=== PATIENT | female | born 1970 | race African-American/Black ===

== ENCOUNTER 2016-09-28 21:39 | Observation (INO) | payer OTHER ==
[~2016-09-28] VITALS: Ht 167.6 cm; Wt 97.5 kg
[~2016-09-28 21:39] MED LIST: AMLODIPINE10 MG PO; HYDRODIURIL 112.5 M1 PO; METOPROLOL TART25 M1 PO; PROTONIX40 M3 PO
--- NOTE | 2016-09-28 21:39 | NUR ---
EMS PATCH CLARIFIED NO NEURO DEFICITS ON THEIR ASSESSMENT, ONLY C/O IS ARM PAIN AND NUMBNESS
--- NOTE | 2016-09-28 21:45 | NUR ---
PT TO TRIAGE WITH C/O DRY COUGH, NAUSEA SINCE THIS MORNING AND RUE NUMBNESS AND WEAKNESS SINCE 9PM. SLIGHT WEAKNESS TO R HAND GRASP NOTED, NO ARM DRIFT, NO FACIAL DROOP, SPEACH WNL. PT DENIES CHEST PAIN. HYPERTENSIVE IN TRIAGE. HX OF HTN.
--- NOTE | 2016-09-28 22:01 | NUR ---
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
--- NOTE | 2016-09-28 22:10 | ED UPPER/LOWER EXTREMITY COMPL ---
History of Present Illness General Chief Complaint: Upper Extremity Problem Stated Complaint: BIBA FOR R ARM PAIN Source: patient Exam Limitations: no limitations Vital Signs & Intake/Output Vital Signs & Intake/Output Vital Signs Date Time Temp Pulse Resp B/P B/P Pulse O2 O2 Flow FiO2 Mean Ox Delivery Rate 09/28 2143 98.0 100 18 188/130 97 Room Air Allergies Coded Allergies: MDX - Diphenhydramine (From BENADRYL) (Intermediate, TACHYCARDIA/RESTLESS ) MDX - Lisinopril (LISINOPRIL) (Mild, COUGHING 11/15/12) Reconcile Medications Amlodipine Besylate (Amlodipine) 10 MG TAB 1 TAB PO DAILY HEART (Reported) Hydrochlorothiazide (Hydrodiuril 12.5 MG Tab) 12.5 MG HTAB 1 CAP PO DAILY WATER PILL (Reported) Metoprolol Tartrate (Lopressor) 25 MG TAB 1 TAB PO BID HEART (Reported) Pantoprazole Sodium (Protonix) 40 MG TAB 40 MG PO DAILY ACID REFLUX (Reported ) Triage Note: PT TO TRIAGE WITH C/O DRY COUGH, NAUSEA SINCE THIS MORNING AND RUE NUMBNESS AND WEAKNESS SINCE 9PM. SLIGHT WEAKNESS TO R HAND GRASP NOTED, NO ARM DRIFT, NO FACIAL DROOP, SPEACH WNL. PT DENIES CHEST PAIN. HYPERTENSIVE IN TRIAGE. HX OF HTN. Triage Nurses Notes Reviewed? yes Past History Travel History Traveled to [place] past 21 day No Medical History Cardiovascular: hypertension Surgical History Surgical History: non-contributory Psychosocial History What is your primary language Finnish Tobacco Use: Never used Departure Departure Condition: Stable Referrals: UNKNOWN (PCP/Family) Departure Forms: Customer Survey General Discharge Information
--- NOTE | 2016-09-28 22:32 | NUR ---
PT TO ER ROOM 2. EVALUATED BY DR CASTRO. STATES SYMPTOMS HAVE NOT CHANGED SINCE ARRIVAL TO ED. NO FACIAL DROOP. NO ARM DRIFT. C/O RT HAND WEAKNESS. STROKE ALERT CALLED BY DR CASTRO. PT TO CT WHILE ON CM WITH THIS RN
--- NOTE | 2016-09-28 22:38 | ED NEURO DEFICIT/STROKE ---
History of Present Illness General Chief Complaint: Upper Extremity Problem Stated Complaint: BIBA FOR R ARM PAIN Source: patient Exam Limitations: no limitations Vital Signs & Intake/Output Vital Signs & Intake/Output Vital Signs Date Time Temp Pulse Resp B/P B/P Pulse O2 O2 Flow FiO2 Mean Ox Delivery Rate 09/29 0200 96.8 81 18 178/94 987 Room Air 09/28 2356 96.8 79 18 156/96 100 Room Air 09/28 2340 100 Room Air 09/28 2143 98.0 100 18 188/130 97 Room Air ED Intake and Output 09/29 0000 09/28 1200 Intake Total Output Total 250 Balance -250 Output, Urine 250 Patient 215 lb Weight Weight Reported by Patient Measurement Method Allergies Coded Allergies: diphenhydramine (Intermediate, TACHYCARDIA/RESTLESSNESS 09/28/16) lisinopril (Mild, COUGHING 09/28/16) Reconcile Medications Hydralazine HCl 25 MG TABLET 1 TAB PO TID BLOOD PRESSURE (Reported) Metoprolol Tartrate (Lopressor) 25 MG TAB 1 TAB PO BID HEART (Reported) Nifedipine (Nifedipine ER) 60 MG TABLET.ER 1 TAB PO DAILY HEART HEALTH ( Reported) Pantoprazole Sodium (Protonix) 40 MG TAB 40 MG PO DAILY ACID REFLUX (Reported ) Triage Note: PT TO TRIAGE WITH C/O DRY COUGH, NAUSEA SINCE THIS MORNING AND RUE NUMBNESS AND WEAKNESS SINCE 9PM. SLIGHT WEAKNESS TO R HAND GRASP NOTED, NO ARM DRIFT, NO FACIAL DROOP, SPEACH WNL. PT DENIES CHEST PAIN. HYPERTENSIVE IN TRIAGE. HX OF HTN. Triage Nurses Notes Reviewed? yes Onset: Abrupt Duration: hour(s): Timing: single episode today Severity: mild New Weakness: RUE Altered Sensations: RUE Vision Problem? No Glaucoma? No Baseline: alert, oriented x 3 Associated Symptoms: right arm weakness and numbness HPI: 46 yo woman, history of hypertension, presents with right arm weakness for the past 1.5 hours. She states that she had a sudden onset of nausea and felt pain in her right shoulder and right upper arm. She then felt some numbness and tingling. She also felt weakness of her right wrist. She states, "I looked at my arm ended didn't feel natural." She notes no chest pain shortness of breath. She does confer mild diaphoresis and nausea which has since resolved. Past History Travel History Traveled to [place] past 21 day No Medical History Any Pertinent Medical History? see below for history Cardiovascular: hypertension Surgical History Surgical History: non-contributory Psychosocial History What is your primary language Bermudian Tobacco Use: Never used Family History Hx Contributory? No Review of Systems Review of Systems Constitutional: Reports: no symptoms. EENTM: Reports: no symptoms. Respiratory: Reports: no symptoms. Cardiovascular: Reports: no symptoms. GI: Reports: no symptoms. Genitourinary: Reports: no symptoms. Musculoskeletal: Reports: no symptoms. Skin: Reports: no symptoms. Neurological/Psychological: Reports: no symptoms. Hematologic/Endocrine: Reports: no symptoms. Immunologic/Allergic: Reports: no symptoms. All Other Systems: Reviewed and Negative Physical Exam Physical Exam General Appearance: well developed/nourished, mild distress Head: atraumatic, normal appearance Eyes: Bilateral: normal appearance, PERRL, EOMI. Ears, Nose, Throat: normal ENT inspection, moist mucous membrane Neck: normal inspection, supple, full range of motion Respiratory: normal breath sounds, chest non-tender, no respiratory distress, quiet respiration, lungs clear Cardiovascular: regular rate/rhythm Gastrointestinal: normal bowel sounds, soft, non-tender, no organomegaly Back: normal inspection, normal range of motion, muscle spasm, muscle spasm and tenderness in the right trapezius region. Range of motion of all extremities is normal. Extremities: normal range of motion Psychiatric: awake, alert, oriented x 3 Cranial Nerves: normal hearing, normal speech, PERRL Coordination/Gait: there is delayed finger to nose with the right hand, without tremor. Motor/Sensory: right fingers and right wrist 4+ out of 5 strength. Right elbow appears normal strength. Right shoulder with 4+ out of 5 strength with abduction Reflexes: 1+: bicep (R), bicep (L), knee (R), knee (L). Skin: intact, normal color, warm/dry Core Measures CVA/TIA Diagnosis: Yes NIH Stroke Scale: Total 0 Comment: Patient was normal 1.5 hours prior to presentation. However no need for TPA due to low stroke score and consultation with neurologist Severe Sepsis Present: No Septic Shock Present: No Bedside Dysphagia Screen Bedside Swallow Eval Done: Yes Result of Evaluation: Pass Progress Differential Diagnosis: tia vs cva vs radiculopathy vs muscle spasm vs other. 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 09/29 UNK Active Precautions 09/29 UNK Active NIH Stroke Scale 09/29 UNK Active Intake & Output 09/29 UNK Active TROPONIN LEVEL 09/28 2228 Complete PARTIAL THROMBOPLASTIN TIME 09/28 2228 Complete PROTHROMBIN TIME 09/28 2228 Complete COMPREHENSIVE METABOLIC PANEL 09/28 2228 Complete CBC WITHOUT DIFFERENTIAL 09/28 2228 Complete Current Medications Sig/Bharath Start time Last Medication Dose Stop Time Status Admin Enoxaparin Sodium 40 MG DAILY 09/29 1000 AC (Lovenox) Acetaminophen 650 MG Q6P PRN 09/29 114 AC (Tylenol) Acetaminophen 1,000 MG Q6P PRN 09/29 114 AC (Ofirmev) Laboratory Tests 09/28/16 2312: Anion Gap 9, Estimated GFR > 60, BUN/Creatinine Ratio 15.6, Glucose 179 H, Calcium 9.4, Total Bilirubin 0.3, AST 19, ALT 40, Alkaline Phosphatase 59, Troponin I < 0.01, Total Protein 6.8, Albumin 4.0, Globulin 2.8, Albumin/ Globulin Ratio 1.4, PT 10.1, INR 0.96, APTT 29, CBC w Diff NO MAN DIFF REQ, RBC 4.24, MCV 88.4, MCH 28.8, RDW 14.0, MPV 8.4, Gran % 68.2, Lymphocytes % 20.3 L, Monocytes % 8.0, Eosinophils % 3.2, Basophils % 0.3, Absolute Granulocytes 5.7, Absolute Lymphocytes 1.7, Absolute Monocytes 0.7 H, Absolute Eosinophils 0.3, Absolute Basophils 0, PUBS MCHC 32.6 L Diagnostic Imaging: Viewed by Me: Radiology Read, CT Scan. Discussed w/RAD: Radiology Read, CT Scan. CXR Impression: no acute abnormality, no infiltrates, normal size heart, normal mediastinum Initial ED EKG: normal axis, normal intervals, normal p-waves, normal QRS complex, normal sinus rhythm Comments: PATIENT: SELVIN PRATT PRESENT AGE: 46 PATIENT ACCOUNT NO: [id number] : 68 LOCATION: [facility] ORDERING PHYSICIAN: AMADOR CASTRO MD SERVICE DATE: 09/28/16 EXAM TYPE: RAD - XRY-PORTABLE CHEST XRAY EXAMINATION: XR PORTABLE CHEST CLINICAL INFORMATION: TIA. COMPARISON: Chest radiography 12/16/2009. TECHNIQUE: Portable frontal view of the chest was obtained. FINDINGS: No significant abnormality is noted involving the heart, lungs, mediastinum, bony thorax or soft tissues. IMPRESSION: Unremarkable examination. 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 <Electronically signed in Other Vendor System> SIGNED BY: JILL MAX MD 09/28/16 [id number] Departure Departure Disposition: STILL A PATIENT Condition: Stable Clinical Impression Primary Impression: Weakness of upper extremity Referrals: UNKNOWN (PCP/Family) Departure Forms: Customer Survey General Discharge Information Comments 09/28/16, :37.... discussed with neuro.... no need for tpa due to low neuro score, but pt merits obs for further evaluation. 09/28/16, 22:48... negative head ct. Observation Note Spoke With: TOMAS YEE MD Physician Advisor Notified: JENNIFER PATHAK,MURPHY [address] Patient In: Non-ED OBS Care Area Rationale for Observation: My rational for observation is as follows . Pt with right arm weakness, consistent with tia vs possible radiculopathy... discussed with neuro... pt merits observation for neuro exam and neuro consult in AM.
--- NOTE | 2016-09-28 22:51 | CT SCAN REPORT ---
EXAMINATION: CT HEAD WITHOUT CONTRAST CLINICAL INFORMATION: TIA. COMPARISON: Head CT 11/20/2012. TECHNIQUE: Contiguous axial imaging was performed from the skull base to vertex without intravenous administration of contrast. DLP: 600 mGy-cm FINDINGS: There is no evidence of acute intracranial hemorrhage or territorial infarction. No abnormal mass effect or midline shift is seen. Fiore to white matter differentiation is well preserved. No extra-axial fluid collections are identified. The ventricles are normal in size. There is no new abnormal attenuation within the brain parenchyma. The osseous structures and soft tissues are normal. The mastoid air cells are well aerated. Small chronic mucous retention cyst in the sphenoid sinus. IMPRESSION: No acute intracranial pathology. This critical result was discussed with Magda Zendejas at 10:48 PM on 09/28/2016 and it was ascertained that the content and urgency of the report was understood at the time of direct communication.
--- NOTE | 2016-09-28 23:02 | RADIOLOGY REPORT ---
EXAMINATION: XR PORTABLE CHEST CLINICAL INFORMATION: TIA. COMPARISON: Chest radiography 12/16/2009. TECHNIQUE: Portable frontal view of the chest was obtained. FINDINGS: No significant abnormality is noted involving the heart, lungs, mediastinum, bony thorax or soft tissues. IMPRESSION: Unremarkable examination.
--- NOTE | 2016-09-28 23:14 | NUR ---
BLOOD DRAWN AND SENT TO LAB [facility] [place] [facility]
[2016-09-28 23:19] LABS: ABSOLUTE BASOPHIL COUNT 0 /CUMM (0.0-0.2); ABSOLUTE EOSINOPHIL COUNT 0.3 /CUMM (0.0-0.7); ABSOLUTE GRANULOCYTE CT 5.7 /CUMM (1.4-6.5); ABSOLUTE LYMPH COUNT 1.7 /CUMM (1.2-3.4); ABSOLUTE MONOCYTE COUNT 0.7 /CUMM (0.10-0.60); BASOPHIL % 0.3 % (0.0-2.0); EOSINOPHIL % 3.2 % (0-5); GRANULOCYTE % 68.2 % (42.2-75.2); HEMATOCRIT 37.5 % (37-47); MEAN CORPUSCULAR HGB 28.8 PG (27.0-31.0); MEAN CORPUSCULAR HGB CONC 32.6 G/DL (33.0-37.0); MEAN CORPUSCULAR VOLUME 88.4 FL (81.0-99.0); MEAN PLATELET VOLUME 8.4 FL (7.4-10.4); PLATELET COUNT 283 /CUMM (130-400); RED BLOOD CELL CT 4.24 /CUMM (4.20-5.40); WHITE BLOOD CELL COUNT 8.4 /CUMM (4.8-10.8)
[2016-09-28 23:27] LABS: PT 10.1 SEC (9.4-12.5); PTT 29 SEC (25-37)
--- NOTE | 2016-09-29 00:02 | NUR ---
PT DENIES ABD PAIN. NAUSEA HAS RESOLVED. BP 156/96 MANUALLY. PT STATES ARM WEAKNESS AND PAIN HAS IMPROVED TO 5/10 FROM 710. PT REMAINS ALERT AND ORIENTED, CLEAR SPEACH, NO FACIAL DROOP. MOVING ALL EXTREMETIES
[2016-09-29] MEDS ORDERED: HYDRALAZINE HCL25 M1 PO (00:15)
[2016-09-29] MEDS ORDERED: NIFEDIPINE ER60 M1 PO (00:16)
--- NOTE | 2016-09-29 00:17 | NUR ---
PT STATE SHE HAS RX FOR 60 MG NIFEDIPINE ER, BUT USES OLD 30 MG TABLETS "WHEN MY BP ISN'T TOO HIGH" TOOK ONLY 30 MG ON 09/28/16
--- NOTE | 2016-09-29 01:21 | History & Physical ---
RENATO PATHAK,[facility] 09/29/16 0120: General Information and HPI MD Statement: I have seen and personally examined SELVIN PRATT and documented this H&P. The patient is a 46 year old F who presented with a patient stated chief complaint of [arm arm weakness and numbness]. Source of Information: patient Exam Limitations: poor historian History of Present Illness: Patient is a 46 year old lady with PMH of HTN, DM, HLD, GERD, who was BIBA after she felt right side arm weakness, numbness and swelling at 9 pm last night. Patient reported that at around 9 pm she started to feel a crampy pain on the right side of the neck radiating to the right arm and right side of the chest, she also felt weakness, swelling and numbness on the right arm; she got scared and immediately called 911 and was brought in the [facility] ED. When we saw the patient she reported that her symptoms were improved but still felt slight weakness and numbness on the right arm. She denied any tingling or burning sensation, did not notice any weakness or numbness in other limbs, denied slurred speech or facial droop. Denied headache, dizziness, LOC, visual changes. Patient also denied any similar episode in the past. Also denied recent lifting heavy items with right arm or lying on one side for long hours. 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 Patient denies chest pain, palpitation, SOB. Reports coughing and sneezing and sore throat but no fever, chills and sputum production. Denies any cardiac history, does not follow up with any hand cloth cutter. she has HTN and takes her BP medications regularly, however she has been having episodes of dizziness and hypotension lately (last time 7 days ago) and modifies BP medication herself based on her BP checks. Denies any lower extremity swelling. Allergies/Medications Allergies: Coded Allergies: diphenhydramine (Intermediate, TACHYCARDIA/RESTLESSNESS 09/28/16) lisinopril (Mild, COUGHING 09/28/16) Past History Travel History Traveled to [place] past 21 day No Medical History Cardiovascular: angina, hypertension Respiratory: NONE Gastrointestinal: NONE Musculoskeletal: NONE Psychiatric: NONE Endocrine: diabetes Blood Disorders: anemia Cancer(s): NONE Surgical History Surgical History: non-contributory Past Family/Social History Family History Relations & Conditions if any MOTHER FH: diabetes mellitus FH: heart disease FHx: hyperlipidemia Psychosocial History Where do you live? Home Who Do You Live With? child Services at Home: None Primary Language: Welsh Smoking Status: Never Smoked ETOH Use: denies use Illicit Drug Use: denies illicit drug use Functional Ability ADLs Independent: dressing, eating, toileting, bathing. 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 EENTM: Denies: blurred vision. Cardiovascular: Denies: chest pain, palpitations, peripheral edema, syncope. Respiratory: Denies: cough, short of breath, sputum production, stridor, wheezing. GI: Denies: abdominal pain, changes in stool. Genitourinary: Reports: no symptoms. Musculoskeletal: Reports: neck pain (right sided). Denies: back pain, joint pain. Skin: Reports: no symptoms. Neurological/Psychological: Reports: numbness (right arm, improved.), weakness (right arm. improved.). Denies: headache. Hematologic/Endocrine: Reports: no symptoms. Immunologic/Allergic: Reports: no symptoms. Exam & Diagnostic Data Last 24 Hrs of Vital Signs/I&O Vital Signs Date Time Temp Pulse Resp B/P B/P Pulse O2 O2 Flow FiO2 Mean Ox Delivery Rate 09/29 0318 79 168/102 09/29 0318 79 168/102 09/29 0230 98.5 75 18 168/108 98 Room Air 09/29 0200 96.8 81 18 178/94 987 Room Air 09/28 2356 96.8 79 18 156/96 100 Room Air 09/28 2340 100 Room Air 09/28 2143 98.0 100 18 188/130 97 Room Air Intake & Output 09/29 0800 09/29 0000 09/28 1600 Intake Total Output Total 250 Balance -250 Output, Urine 250 Patient 97.522 kg 97.522 kg Weight Weight Reported by Patient Measurement Method Physical Exam General Appearance Alert, Oriented X3, Cooperative, No Acute Distress Skin No Significant Lesion Skin Temp/Moisture Exam: Warm/Dry Sepsis Skin Exam (color): Normal for Ethnicity HEENT Atraumatic, EOMI, Mucous Membr. moist/pink, pupils round and reactive to light Neck Supple Cardiovascular Regular Rate, Normal S1, Normal S2, 3/6 systolic murmur in aortic area and LSB Lungs Clear to Auscultation, Normal Air Movement Abdomen Normal Bowel Sounds, Soft, No Tenderness Neurological Normal Gait, Normal Speech, Strength at 5/5 X4 Ext, Normal Tone, Sensation Intact, Cranial Nerves 3-12 NL, Reflexes 2+, tinel and phalen signs negative Extremities No Edema, Normal Pulses Vascular Normal Pulses, Pulses Symmetrical Last 24 Hrs of Labs/Addi: Laboratory Tests 09/28/16 2312: Anion Gap 9, Estimated GFR > 60, BUN/Creatinine Ratio 15.6, Glucose 179 H, Hemoglobin A1c Pending, Calcium 9.4, Total Bilirubin 0.3, AST 19, ALT 40, Alkaline Phosphatase 59, Troponin I < 0.01, Total Protein 6.8, Albumin 4.0, Globulin 2.8, Albumin/Globulin Ratio 1.4, TSH Pending, Free T4 1.25, PT 10.1, INR 0.96, APTT 29, CBC w Diff NO MAN DIFF REQ, RBC 4.24, MCV 88.4, MCH 28.8, RDW 14.0, MPV 8.4, Gran % 68.2, Lymphocytes % 20.3 L, Monocytes % 8.0, Eosinophils % 3.2, Basophils % 0.3, Absolute Granulocytes 5.7, Absolute Lymphocytes 1.7, Absolute Monocytes 0.7 H, Absolute Eosinophils 0.3, Absolute Basophils 0, PUBS MCHC 32.6 L Diagnostic Data EKG Results sinus rhythm, rate 92, LVH, OH interval 156, QTc 461, no acute ST-T changes CXR Results SERVICE DATE: 09/28/16 EXAM TYPE: RAD - XRY-PORTABLE CHEST XRAY EXAMINATION: XR PORTABLE CHEST CLINICAL INFORMATION: TIA. COMPARISON: Chest radiography 12/16/2009. TECHNIQUE: Portable frontal view of the chest was obtained. FINDINGS: No significant abnormality is noted involving the heart, lungs, mediastinum, bony thorax or soft tissues. IMPRESSION: Unremarkable examination. Other Results SERVICE DATE: 09/28/16 EXAM TYPE: CAT - CT HEAD WO IV CONTRAST EXAMINATION: CT HEAD WITHOUT CONTRAST CLINICAL INFORMATION: TIA. COMPARISON: Head CT 11/20/2012. TECHNIQUE: Contiguous axial imaging was performed from the skull base to vertex without intravenous administration of contrast. DLP: 600 mGy-cm FINDINGS: There is no evidence of acute intracranial hemorrhage or territorial infarction. No abnormal mass effect or midline shift is seen. Fiore to white matter differentiation is well preserved. No extra-axial fluid collections are identified. The ventricles are normal in size. There is no new abnormal attenuation within the brain parenchyma. The osseous structures and soft tissues are normal. The mastoid air cells are well aerated. Small chronic mucous retention cyst in the sphenoid sinus. IMPRESSION: No acute intracranial pathology. This critical result was discussed with Magda Zendejas at 10:48 PM on 09/28/2016 and it was ascertained that the content and urgency of the report was understood at the time of direct communication. Assessment/Plan Assessment: Patient is a 46 year old lady with PMH of HTN, DM (not taking medication), HLD ( not taking medication), GERD, recent admission in February 2016 at [facility] for chest pain and palpitation (rules out ACS)who was BIBA after she experienced right sided UE weakness and numbness. In the ED she was found to have slight RUE weakness; during our examination however, patient had full forces in all extremities with no sensory loss, rest of the neurology exam was also normal as mentioned above. Of note, patient's BP is found to be elevated. Head CT scan is negative for any intracranial pathology. She is moved from ED to telemetry for 24-hour observation. Problem list and plan: Possible TIA -BIBA after an episode of right sided arm weakness, pain and numbness, currently resolved. -Etiologies: TIA, radicular pain from possible neck osteoarthritis, carpal tunnel syndrome (less likely as tinel and phalen signs are negative and the patient denies paresthesia or tingling). -maximum 4 points in ABCD2 stroke risk assessment: Moderate Risk (based on HTN, DM, unilateral weakness, which is now resolved). 2-Day Stroke Risk: 4.1%, 7-Day Stroke Risk: 5.9%, 90-Day Stroke Risk: 9.8%. -Received 325 mg aspirin in ED. * Neurochecks Q4 * Doppler carotid US in am * 2D Echocardiogram * Consider MRI of the brain * Cervical spine xray * Aspirin 81 mg daily * Check Lipid profile * Atorvastatin 40 mg daily * Neurology consult placed for am Hypertension -BP 188/130 on arrival, next measurement was down to 156/96 without any intervention -She takes Nifedipine 30 mg daily (patient was prescribed 60 mg daily recently, but she reports taking 30 mg daily), Hydralazine 25 mg TID, Metoprolol 25 mg BID , and HCTZ 25 mg daily. Patient reports occasional hypotension and keeps her BP meds on hold at times due to that. * Will restart home medications and monitor BP History of chest pain and palpitation Admitted to [facility] in february 2016, ruled out ACs, stress ECHO showed normal EF of 60-65%. Currently denies chest pain or palpitation, heart and lung exams, CXR and EKG unremarkable, troponin 0.01. * Continue telemetry monitoring DM Patient has been prescribed metformin according to the records She does not take any medication and denied being diagnosed with DM * Check HbA1c * Novolog SS HLD Found in the records at [facility] Patient does not take any medication * Lipid panel * Started on statin * Check LFT History of thyroid nodules Patient reports a thyroid disease, not on any medicaitons, records at [facility] reported thyroid nodules with normal TFT in February 2016 * Ordered TFT, will follow GERD * Continue omeprazole 40 mg daily Passed bedside swallow eval, started on heart healthy diet mild pain pathway Full code As Ranked By This Provider Problem List: 1. Anemia 2. Peripheral edema 3. Weakness of upper extremity Core Measures/Miscellaneous Acute Coronary Syndrome ACS Diagnosis: No Cerebrovascular Accident CVA/TIA Diagnosis: Yes NIH Stroke Scale: Total 0 Date Last Known Well: 09/28/16 Time Last Known Well: 2099 Neurological S/S of CVA: Weakness of Limb Symptom Start Date: 09/28/16 Symptom Start Time: 2099 Bedside Swallow Eval Done: Yes Result of Evaluation: Pass Antithrombotic: No AFIB: No Aflutter: No Anticoagulant: No Evidence of Atherosclerosis: No LDL Assessed Within 24 Hours: Yes Currently on Statin: No Congestive Heart Failure CHF Diagnosis: No Venous Thromboembolism VTE Risk Factors: Acute medical illness, Age > 40 No [facility] VTE prophylaxis d/t: VTE low risk, No contraindications No VTE Pharm Prophylaxis d/t: VTE low risk, No contraindications VTE Diagnosis: No VTE Type: NONE VTE Confirmed by (Test): NONE Severe Sepsis Severe Sepsis Present: No Septic Shock Septic Shock Present: No Miscellaneous Documentation Attending Case Discussed With: TOMAS YEE MD Primary Care Physician: UNKNOWN Patient sees these Specialists none Level of Patient Care: Telemetry (observation) TI RANGEL 09/29/16 0205: General Information and HPI Allergies/Medications Home Med list Aspirin (Aspirin*) 81 MG TAB.CHEW 81 MG PO DAILY PROPHALXYSIS Atorvastatin Calcium 20 MG TABLET 1 TAB PO DAILY HYPERLIPIDEMIA Ferrous Sulfate 325 MG (65 MG IRON) TABLET 1 TAB PO BID IRON DEFICIENCY ( Reported) Hydralazine HCl 25 MG TABLET 1 TAB PO TID BLOOD PRESSURE (Reported) Hydrochlorothiazide 12.5 MG CAPSULE 1 CAP PO DAILY HTN (Reported) Metoprolol Tartrate 25 MG TABLET 1 TAB PO BID HEART (Reported) Nifedipine (Nifedipine ER) 60 MG TABLET.ER 1 TAB PO DAILY HEART HEALTH ( Reported) Pantoprazole Sodium (Protonix) 40 MG TABLET.DR 1 TAB PO DAILY ACID REFLUX ( Reported) Resident Review Statement Resident Statement: examined this patient, discussed with statistics intern, agreed with statistics intern Other Findings: This is a 46-year-old female with past medical history of hypertension, hyperlipidemia, diabetes mellitus (as per [facility] records), previous menometrorrhagia secondary to fibroids, thyroid nodules (determined euthyroid , not on any medications)'s brought in by ambulance for right arm pain. Apparently the patient was having some cold and cough-like symptoms since one day prior to admission associated with runny nose. She took some over-the- counter medication after which she felt more nauseous. She said that she was not feeling herself, not feeling good since one day prior to admission, her throat was bothering her and she had continued sneezing. One day prior to presentation, around 9 PM she fell pain in her right arm, including the right side of her neck as well as right shoulder and the right upper arm, she felt like her arm was cracking with abnormal sensation in her arm and felt like it was swollen.She also felt weakness in the arm and got very concerned and therefore immediately called the EMS and she was brought into [facility] within 50 minutes of her symptoms. She denied any similar episodes before, any fever, any chest pain, palpitations, abdominal pain, diarrhea, nausea, vomiting. She endorsed that she had one admission last year for very high blood pressure other than that she has had no major admissions in the past. She is a nonsmoker, nonalcoholic, no illicit drug abuse. She lives with her home with her kids at aunt. 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 She follows up at the [facility]. She said that she has been self titrating her blood pressure medications - hydralazine, hydrochlorothiazide and nifedipine to higher and lower doses depending on her blood pressures herself. Vitals on exam : temperature of 96.8, pulse of 79, respiration of 18, initially when she came in her blood pressure was noted to be 88 over 1 30 mmHg which gradually came down to 156/96 after she received one time of 325 mg aspirin stat. PE : patient was alert, oriented 3, not in any acute distress. CVS S1-S2 present, 3/6 systolic murmur. RS bilateral air entry equal, no adventitious sounds. Per abdominal: Obese abdomen, normal bowel sounds present. Neurological exam essentially normal, strength 5 out of 5 in all muscle groups in bilateral lower extremities as well as upper extremity. Sensation intact in both upper and lower extremity. Cranial nerves were all within normal limit, cerebellar signs were within normal limits. Reflexes present however were unable to check on the reflexes as the patient would not relax her limbs. Memory intact. Labs essentially normal, electrolytes essentially normal, kidney function tests within normal limits, glucose noted to be 179. CT head was negative for any hemorrhage. Chest x-ray did not show any acute cardiopulmonary findings. EKG showed rate of 92, OH interval of 156, QTC of 461, left ventricular hypertrophy by voltage. No acute ST-T wave changes. Her last echocardiogram apparently was in January 2015 which showed normal left ventricular ejection fraction of 62%, no wall motion abnormality. She also had a stress echocardiogram testing in February 2016 which showed a normal EF of 60-65% and had a normal stress test. (This was during her admission for chest pain and palpitation at [facility] and she was ruled out for ACS). Problem list along with assessment and plan. Problem #1 Right arm weakness Possible Differential diagnosis would be ischemic stroke/TIA/hemorrhage however CT Head was negative for any bleed.Other possibility could be cervical radiculopathy, neuromuscular weakness however muscle strength was completely normal in the distal as well as proximal muscles. There were no electrolyte abnormalities that were noted.She denied any trauma/exertion/unknowing pressure on the arm. * 4 points in ABCD2 stroke risk assessment: There she is at moderate Risk with 2 day Stroke Risk: 4.1%, 7 day Stroke Risk: 5.9%, 90-Day Stroke Risk: 9.8%. * Continue monitor vitals/neuro checks with denies stroke scale/monitor intake and output/carotid Doppler to rule out any atherosclerosis that might possibly explain the etiology if this is a TIA/echocardiogram to look for source of emboli if any/neuro consult in the a.m. * We will also get an x-ray of the cervical spine to rule out any arthritis of the spine that could cause the radiculopathy. * PT OT evaluation in the a.m. * He received one time of 325 mg aspirin stat at the ER. * Start high-dose statin atorvastatin 40 mg daily. * Will continue aspirin daily at 81 mg. * Consider MRI in the am as per neuro. Problem #2 history of hypertension. * The high blood pressure could be secondary to stroke in that case we would allow permissive hypertension. However the symptoms of stroke/TIA like episode less likely.Initially the weakness of MALIKA was observed at the ER evaluation, however when we saw the patient her and essentially had normal strength, normal sensation, normal cranial exam normal cerebellar signs. * We will continue hydralazine and nifedipine at home dosage for now. * Start hydrochlorothiazide and metoprolol from a.m. * Monitor blood pressure closely. Problem #3 history of diabetes mellitus. * As per the [facility] records patient was started on metformin however patient did not give us any history of being on metformin.We will continue to monitor fingersticks for now. * Check HbA1c. * If need be NovoLog sliding scale can be started, holding off for now. Problem #4 history of thyroid nodules. * As per the patient she had some thyroid nodules however she found to be euthyroid, therefore she was not placed on any hormonal replacement. Problem #5 history of iron deficiency anemia. * Most likely secondary to metromenorrhagia from fibroids. * Continue ferrous sulfate at home dosage. Problem #6 GERD * Continue omeprazole 40 mg daily. Problem#7 h/o hyperlipidemia. * patient didnot provide this history,however Records indicated h/o Hyperlipidemia. * Start atorvastatin 40 mg OD * Lipid panel in am. Full code. DVT prophylaxis with Lovenox. Mild/moderate pain pathway with by mouth and IV Tylenol. Heart healthy diet. Patient passed bedside swallow eval and did not have any difficulty swallowing. TOMAS YEE 09/29/16 0405: Attending MD Review Statement Attending Statement Attending MD Statement: examined this patient, discuss w/resident/PA/HOSPITAL ADMITTING CLERK, agreed w/resident/PA/HOSPITAL ADMITTING CLERK, discussed with family, reviewed EMR data (avail), reviewed images, amended to note Attending Assessment/Plan: CC: pain and heaviness in right arm PMH: HTN, HLD Patient is a poor historian, she says that something came onto her right arm around 9 PM. There was pain in her lateral aspect of neck, arm associated with weird feeling of heaviness ?Swelling , ?Feeling flat. She held her hand titrate to chest so that she was unable to move her right hand. Upon arrival in ER in the triads note it is mentioned that patient has slight weakness right hand grasp. Similar finding according to ER physician. By the time I saw her, she did not complain of anything, pain and numbness ?Weakness resolved. No headache, LOC , speech abnormality, word finding difficulty, deviation of mouth, drooling, weakness in lower extremity, chest pain, palpitation at home when this episode happened. Patient has history of HTN, checks her blood pressure then she doesn't "feel right", changes her antihypertensive medication doses accordingly. As her blood pressure was low last Thursday she has been taking decreased doses of hydralazine and nifedipine. Vitals: Afebrile, HR O2 saturation acceptable range. Blood pressure 188/130 upon arrival, decreased to 156/96 without treatment, now persistently elevated at 168 /108. On exam: A O 3, cooperative, no acute distress, neck supple, JVD normal, no lymphadenopathy, mucosa moist, no dependent edema, no obvious skin rashes or inflammation CVS: S1-S2, RRR systolic murmur in aortic area, nonradiating to carotids. RS: Clear to auscultate bilaterally. Abdomen: Soft, NT, ND, bowel sounds present. Cranial nerves intact, strength bilateral upper extremity and lower extremity 5/5, tone normal, reflexes normal, cerebellar reflexes normal. Labs: CBC, BMP, LFT, troponin, unremarkable CT head: No acute intracranial pathology CXR: Unremarkable A and P Patient is a poor historian. It is unclear whether she had weakness of her right upper extremity at home or not. She complains of some heaviness and pain in his right upper extremity, which is now resolved. According to ER notes she had slight weakness of right hand hay chopper, for our examination her strength and reflexes are normal. Patient does have long-standing hypertensive history, and taking antihypertensives with changing doses according to home blood pressures. Patient's blood pressure was significantly elevated at arrival. CT head does not show any evidence of hemorrhage. Signs and symptoms are more pointing towards peripheral ? Radicular, but need to rule out TIA. + Right upper extremity pain and numbness + Hypertensive urgency - Place in observation on telemetry - Neurochecks every 4 hours - Continue aspirin 81 mg, atorvastatin 40 mg - Patient passed bedside swallow evaluation - 2-D echo, carotid Doppler, lipid profile, HbA1c in a.m., TSH - Neuro consult in a.m. - X-ray cervical spine - Continue oral antihypertensives at home doses, as necessary IV hydralazine if persistently hypertensive - Consider MRI in a.m. according to neurology opinion - Adequate pain control - DVT prophylaxis with Alps
--- NOTE | 2016-09-29 01:40 | NUR ---
HOUSE STAFF IN TO EVAL PT
--- NOTE | 2016-09-29 02:00 | NUR ---
REPORT GIVEN TO MAY POLANCO
[2016-09-29 02:30] VITALS: BP 168/108
[2016-09-29] MEDS ORDERED: FERROUS SULFAT325 M3 PO (02:52)
--- NOTE | 2016-09-29 03:03 | NUR ---
PT ADMITTED FROM ER 23H OBS FOR RUE WEAKNESS/NUMBESS. ORIENTED TO ROOM ,CALL DAILY, STAFF ETC. ALERT AND OREINTED X 3. RA. LCTA. DRY COUGH. SCORED 0 ON NIH SCALE. SLIGHT RIGHT ARM WEAKNESS. AMBULATES INDPENDENTLY W/ STEADY GAIT. NSR ON MONITOR. SKIN CDI. ELEVATED B/P, AWAITING MEDICATIONS FROM PHARMACY. PT ASYPTOMATIC. MD YEE AT BEDSIDE. WILL CONTINUE TO MONITOR.
[2016-09-29 04:00] VITALS: BP 160/90
--- NOTE | 2016-09-29 04:14 | NUR ---
PO HYDRALAZINE AND PROCARDIA GIVEN ORDERED. B/P RECHECK-160/90. MD GROSS MADE AWARE. WILL CONTINUE TO MONITOR,.
[2016-09-29 07:54] VITALS: BP 136/82
--- NOTE | 2016-09-29 12:01 | NUR ---
Physical Therapy: Consult received and chart reviewed. Pt's symptoms have resolved and pt is ambulating Independently. Acute skilled PT is not indicated at this time. Thank you.
--- NOTE | 2016-09-29 12:15 | PN- Att Addend ---
Attending Addendum Attending Brief Note Patient seen and examined, feels overall better today. Denies any right arm weakness or pain anymore. Her blood pressure was improved this morning. Vital Signs Date Time Temp Pulse Resp B/P B/P Pulse O2 O2 Flow FiO2 Mean Ox Delivery Rate 09/29 913 90 136/82 09/29 0914 90 136/82 09/29 0914 90 136/82 09/29 0800 Room Air 09/29 0754 99.2 90 20 136/82 96 09/29 0400 80 160/90 09/29 0318 79 168/102 09/29 0318 79 168/102 09/29 0230 98.5 75 18 168/108 98 Room Air 09/29 0200 96.8 81 18 178/94 987 Room Air 09/28 2356 96.8 79 18 156/96 100 Room Air 09/28 2340 100 Room Air 09/28 2143 98.0 100 18 188/130 97 Room Air on exam; aox3, nad. cv; s1,s2, rrr resp; clear abd; soft, nt, bs+ ext; no edema. neuro: non focal. Laboratory Tests 09/29 2312 Chemistry Sodium (137 - 145 mmol/L) 140 Potassium (3.5 - 5.1 mmol/L) 3.6 Chloride (98 - 107 mmol/L) 102 Carbon Dioxide (22 - 30 mmol/L) 28 Anion Gap (5 - 16) 9 BUN (7 - 17 mg/dL) 14 Creatinine (0.5 - 1.0 mg/dL) 0.9 Estimated GFR (>60 ml/min) > 60 BUN/Creatinine Ratio (7 - 25 %) 15.6 Glucose (65 - 99 mg/dL) 179 H Hemoglobin A1c (4.2 - 5.8 %) Pending Calcium (8.4 - 10.2 mg/dL) 9.4 Total Bilirubin (0.2 - 1.3 mg/dL) 0.3 AST (14 - 36 U/L) 19 ALT (9 - 52 U/L) 40 Alkaline Phosphatase (<127 U/L) 59 Troponin I (< 0.11 ng/ml) < 0.01 Total Protein (6.3 - 8.2 g/dL) 6.8 Albumin (3.5 - 5.0 g/dL) 4.0 Globulin (1.9 - 4.2 gm/dL) 2.8 Albumin/Globulin Ratio (1.1 - 2.2 %) 1.4 Triglycerides (<150 mg/dL) 64 Cholesterol (<200 MG/DL) 194 LDL Cholesterol, Calc (65 - 129 mg/dL) 124 HDL Cholesterol (40 - 60 mg/dL) 58 Cholesterol/HDL Ratio (0.00 - 4.23 %) 3 TSH (0.270 - 4.200 uIU/mL) 2.430 Free T4 (0.64 - 1.79 ng/dL) 1.25 Coagulation PT (9.4 - 12.5 SEC) 10.1 INR (0.90 - 1.19) 0.96 APTT (25 - 37 SEC) 29 Hematology CBC w Diff NO MAN DIFF REQ WBC (4.8 - 10.8 /CUMM) 8.4 RBC (4.20 - 5.40 /CUMM) 4.24 Hgb (12.0 - 16.0 G/DL) 12.2 Hct (37 - 47 %) 37.5 MCV (81.0 - 99.0 FL) 88.4 MCH (27.0 - 31.0 PG) 28.8 RDW (11.5 - 14.5 %) 14.0 Plt Count (130 - 400 /CUMM) 283 MPV (7.4 - 10.4 FL) 8.4 Gran % (42.2 - 75.2 %) 68.2 Lymphocytes % (20.5 - 51.1 %) 20.3 L Monocytes % (1.7 - 9.3 %) 8.0 Eosinophils % (0 - 5 %) 3.2 Basophils % (0.0 - 2.0 %) 0.3 Absolute Granulocytes (1.4 - 6.5 /CUMM) 5.7 Absolute Lymphocytes (1.2 - 3.4 /CUMM) 1.7 Absolute Monocytes (0.10 - 0.60 /CUMM) 0.7 H Absolute Eosinophils (0.0 - 0.7 /CUMM) 0.3 Absolute Basophils (0.0 - 0.2 /CUMM) 0 PUBS MCHC (33.0 - 37.0 G/DL) 32.6 L A/P; 46 y/o F with pmh sig for HTN, DM, HDL, GERD, is placed on tele Obs with possible TIA or radiculopathy from Cervical spine DJD as well as Hypertensive urgency. Patient is awaiting echocardiogram and carotid Dopplers. No telemetry events overnight. Will check a cervical spine x-ray. Neuro evaluation pending. This morning blood pressure improved. Patient was started on aspirin and statin. After the workup is complete and negative and Neuro does not recommend any intervention, likely discharge home today.
--- NOTE | 2016-09-29 12:55 | Cons- Neurology ---
General Information and HPI Consulting Request Date of Consult: 09/29/16 Requested By: VIVIANA PERSAUD MD History of Present Illness: 46 y.o. hypertensive female presents with acute right paracervical discomfort with tingling and heaviness of the right arm after an episode of coughing and nausea presumed due to her allergies. Symptoms lasted less than 30 min. and resolved spont. No associated complaints referable to face, leg, visopn or speech. No prior hx. of same. Now back to baseline Allergies/Medications Allergies: Coded Allergies: diphenhydramine (Intermediate, TACHYCARDIA/RESTLESSNESS 09/28/16) lisinopril (Mild, COUGHING 09/28/16) Home Med List: Ferrous Sulfate 325 MG (65 MG IRON) TABLET 1 TAB PO BID IRON DEFICIENCY ( Reported) Hydralazine HCl 25 MG TABLET 1 TAB PO TID BLOOD PRESSURE (Reported) Metoprolol Tartrate 25 MG TABLET 1 TAB PO BID HEART (Reported) Nifedipine (Nifedipine ER) 60 MG TABLET.ER 1 TAB PO DAILY HEART HEALTH ( Reported) Pantoprazole Sodium (Protonix) 40 MG TABLET.DR 1 TAB PO DAILY ACID REFLUX ( Reported) Review of Systems Review of Systems: no fever, chills ,rash, diplopia, dysarthria, sob, joint inflammation, bleeding or neck pain.No ataxia, vertigo, confusion Past History Travel History Traveled to [place] past 21 day No Medical History Blood Transfusion Hx: No Cardiovascular: angina, hypertension Respiratory: NONE Gastrointestinal: NONE Musculoskeletal: NONE Psychiatric: NONE Endocrine: diabetes Blood Disorders: anemia Cancer(s): NONE Surgical History Surgical History: non-contributory Family History Relations & Conditions If Any: MOTHER FH: diabetes mellitus FH: heart disease FHx: hyperlipidemia Psychosocial History Where Do You Live? Home Who Do You Live With? child Services at Home: None Primary Language: Algerian Smoking Status: Never Smoked ETOH Use: denies use Illicit Drug Use: denies illicit drug use Functional Ability ADLs Independent: dressing, eating, toileting, bathing. Ambulation: independent Employment History Employment: Employed Profession/Employer: [employer] Exam & Diagnostic Data Vital Signs and I&O Vital Signs Date Time Temp Pulse Resp B/P B/P Pulse O2 O2 Flow FiO2 Mean Ox Delivery Rate 09/29 913 90 136/82 09/29 913 90 136/82 05/15 0914 90 136/82 09/29 0800 Room Air 09/29 0754 99.2 90 20 136/82 96 09/29 0400 80 160/90 09/29 0318 79 168/102 09/29 0318 79 168/102 09/29 0230 98.5 75 18 168/108 98 Room Air 09/29 0200 96.8 81 18 178/94 987 Room Air 09/28 2356 96.8 79 18 156/96 100 Room Air 09/28 2340 100 Room Air 09/28 2143 98.0 100 18 188/130 97 Room Air Intake & Output 09/29 1600 09/29 0800 09/29 0000 Intake Total 120 Output Total 250 Balance 120 -250 Intake, Oral 120 Output, Urine 250 Patient 215 lb 215 lb Weight Weight Reported by Patient Measurement Method middle aged female in NAD cognition and speech intact CN exam normal No weakness DTR's equal Plantars down. Sensation normal Coordination normal Gait untested Assessment/Plan Assessment: Transient paresthesia right arm. Associated pain speaks more for peripheral issue. Question transient cervical radiculitis triggered by cough/ valsalva. Exam normal. Baqck to baseline. TIA unlikely.Dissection also unlikely with arm and neck symptoms on the same side. Recommendations: Brief observation carotid ultrasound Office f/u if symptoms recur Consult Acknowledgment - Thank you for your consult request.
--- NOTE | 2016-09-29 13:34 | ULTRASOUND REPORT ---
EXAMINATION: DUPLEX BILATERAL CAROTID ULTRASOUND CLINICAL INFORMATION: This is a 46-year-old female with history of atherosclerosis. TIA like symptoms. Hypertension, hyperlipidemia, cardiac disease, weakness. Right side arm weakness. Possible carotid artery disease. COMPARISON: None. TECHNIQUE: Real-time ultrasound and Doppler techniques (integrating B-mode 2D vascular images, Doppler spectral analysis and color flow Doppler imaging) were utilized to interrogate the extracranial carotid and vertebral arteries bilaterally. The degree of stenosis determined by criteria similar to NASCET. FINDINGS: Right side: 1. There is no atherosclerotic plaque is seen in the ECA/ICA region. 2. The common carotid artery velocity is 136 cm/s. 3. The internal carotid artery velocities are 136 cm/s systolic and 33 cm/s diastolic. 4. The external carotid artery velocity is 148 cm/s. Left side: 1. There is no atherosclerotic plaque is seen in the ECA/ICA region. 2. The common carotid artery velocity is 134 cm/s. 3. The internal carotid artery velocities are 94 cm/s systolic and 28 cm/s diastolic. 4. The external carotid artery velocity is 166 cm/s. ADDITIONAL FINDINGS: 1. The vertebral arteries show antegrade flow. 2. The brachial artery pressures are symmetric. 3. The external carotid artery velocities are elevated without evidence of atherosclerotic plaque. IMPRESSION: 1. RIGHT: There is no atherosclerotic plaque but there are elevated velocities which may indicate a hemodynamically significant stenosis of the proximal right internal carotid artery corresponding to a 0-49% stenosis by velocity criteria. The possibility of fibromuscular dysplasia should be considered in the differential diagnosis in the absence of atherosclerotic plaque. Further evaluation with MRA of the neck is recommended. 2. LEFT: There is no atherosclerotic plaque or hemodynamically significant stenosis of the proximal left internal carotid artery by velocity criteria.
[2016-09-29] MEDS ORDERED: ASPIRIN81 M4 PO (15:24)
[2016-09-29] MEDS ORDERED: ATORVASTATIN CA40 M1 PO (15:24)
--- NOTE | 2016-09-29 15:37 | Patient Discharge Instructions ---
Discharge Instructions General Discharge Information You were seen/treated for: NUMBNESS AND WEAKNESS OF RIGHT HAND AND NECK Special Instructions: PLEASE SEEK MEDICAL ATTENTION IF YOU DEVELOPE ANY SIGNS OF NUMBNESS OR WEAKNESS YOU HAVE BEEN PRESCRIBED ASPIRIN AND ATORVASTATINB (CHOLESTEROL MED) TO BE TAKEN DAILY PLEASE F/U WITH THE REFERRAL GIVEN FOR YOUR PRIMARY CARE WITHIN 1 WEEK Acute Coronary Syndrome Inclusion Criteria At DC or during hospital stay patient has or had the following: ACS DIAGNOSIS No Discharge Core Measures Meds if any: Prescribed or Continued at Discharge Meds if any: NOT Prescribed or Continued at Discharge Congestive Heart Failure Inclusion Criteria At DC or during hospital stay patient has or had the following: CHF DIAGNOSIS No Discharge Core Measures Meds if any: Prescribed or Continued at Discharge Meds if any: NOT Prescribed or Continued at Discharge Cerebrovascular accident Inclusion Criteria At DC or during hospital stay patient has or had the following: CVA/TIA Diagnosis Yes Discharge Core Measures Meds if any: Prescribed or Continued at Discharge Meds if any: NOT Prescribed or Continued at Discharge Venous thromboembolism Inclusion Criteria VTE Diagnosis No VTE Type NONE VTE Confirmed by (Test) NONE Discharge Core Measures - Per Current guidelines, there needs to be overlap - treatment for the first 5 days of Warfarin therapy. - If discharged on Warfarin prior to 5 days of - overlap therapy, the patient will need to be - assessed for post discharge needs including - *Post discharge parental anticoagulation - *Warfarin and/or parental anticoagulation education - *Follow up date to check INR post discharge At least 5 days overlap therapy as Inpatient No Meds if any: Prescribed or Continued at Discharge Note: Overlap Therapy is Warfarin and Anticoagulant Meds if any: NOT Prescribed or Continued at Discharge
[2016-09-29] MEDS ORDERED: HYDROCHLOROTH12.5 M3 PO (15:48)
[2016-09-29] MEDS ORDERED: ATORVASTATIN CA20 M1 PO (15:59)
--- NOTE | 2016-09-29 16:16 | RADIOLOGY REPORT ---
EXAMINATION: XR CERVICAL SPINE CLINICAL INFORMATION: Right upper arm weakness. COMPARISON: None TECHNIQUE: Cervical spine, 3 views FINDINGS: The skull base, atlas, axis and atlantoaxial articulation are intact. On the lateral radiograph, the cervical vertebra are seen to the level of C7. The vertebra have normal height and alignment. The disc spaces are normal. The facet joints and uncovertebral joints are unremarkable. No fracture, subluxation or prevertebral soft tissue swelling. The visualized lung apices are normal. IMPRESSION: Normal cervical spine.
[2016-09-29 16:52] VITALS: BP 146/90
[2016-09-29 16:59] VITALS: BP 146/90
--- NOTE | 2016-09-29 18:47 | ECHOCARDIOGRAM REPORT ---
SELVIN PRATT Age: 46 : 1970 Gender: F Exam Date: 09/29/2016 15:33 Exam Location: 1 [address] Ht (in): 66 Wt (lb): 215 BSA: 2.17 BP: 136 / 82 Ordering Physician: TI RANGEL MD Referring Physician: TI RANGEL MD Technologist: Elidia Fernandes [facility] Room Number: 181 Indications: STROKE Rhythm: Sinus Technical Quality: Good FINDINGS Left Ventricle Normal size left ventricle. Moderate concentric left ventricular hypertrophy. Normal left ventricular ejection fraction visually estimated at >65 %. No obvious regional wall motion abnormalities. Abnormal relaxation filling pattern of the left ventricle for age (stage 1 diastolic dysfunction). Right Ventricle The right ventricle is normal in size and function. Right Atrium The right atrium is normal in size. Left Atrium Left atrial size at the upper limits of normal. Mitral Valve The mitral valve is normal in structure and function. There is no mitral regurgitation. Aortic Valve Structurally normal aortic valve without significant sclerosis or stenosis. There is no aortic regurgitation. Tricuspid Valve The tricuspid valve is normal in structure and function. There is trace tricuspid regurgitation. Pulmonary artery systolic pressure is normal. Pulmonic Valve Structurally normal pulmonic valve. There is trace pulmonic regurgitation. Pericardium Normal pericardium without effusion. No pleural effusion. Great Vessels Normal aortic root dimension. The aortic arch and great vessels are well seen and are normal. CONCLUSIONS Moderate concentric left ventricular hypertrophy. Normal left ventricular ejection fraction visually estimated at >65 No obvious regional wall motion abnormalities. Abnormal relaxation filling pattern of the left ventricle for age (stage 1 diastolic dysfunction). Left atrial size at the upper limits of normal. No significant valve abnormalities. Physiologic valvular regurgitation. Pulmonary artery systolic pressure is normal. Geovanni Jacobson M.D. (Electronically Signed) Final Date: 29 Sep 2016 18:45 MEASUREMENTS (Male / Female) Normal Values 2D ECHO LV Diastolic Diameter PLAX 3.6 cm 4.2 - 5.9 / 3.9 - 5.3 cm LV Systolic Diameter PLAX 2.0 cm 2.1 - 4.0 cm LV Fractional Shortening PLAX 44.4 % 25 - 46 % LV Ejection Fraction 2D Teich 76.6 % IVS Diastolic Thickness 1.5 cm LVPW Diastolic Thickness 1.4 cm LV Relative Wall Thickness 0.8 RV Internal Dim ED PLAX 2.8 cm 1.9 - 3.8 cm LVOT Diameter 1.8 cm Aortic Root Diameter 2.8 cm LA Systolic Diameter LX 4.2 cm 3.0 - 4.0 / 2.7 - 3.8 cm LA Volume 51.0 cm 18 - 58 / 22 - 52 cm Ascending Aorta Diameter 3.1 cm DOPPLER AV Peak Velocity 232.0 cm/s AV Peak Gradient 21.5 mmHg AV Mean Velocity 161.0 cm/s AV Mean Gradient 12.0 mmHg AV Velocity Time Integral 46.3 cm LVOT Peak Velocity 151.0 cm/s LVOT Peak Gradient 9.1 mmHg LVOT Mean Velocity 107.0 cm/s LVOT Mean Gradient 5.0 mmHg LVOT Velocity Time Integral 31.2 cm LVOT Stroke Volume 79.4 cm AV Area Cont Eq vti 1.7 cm AV Area Cont Eq pk 1.7 cm MV Peak Velocity 136.0 cm/s MV Peak Gradient 7.4 mmHg MV Mean Velocity 60.4 cm/s MV Mean Gradient 2.0 mmHg Mitral E Point Velocity 80.8 cm/s Mitral A Point Velocity 136.0 cm/s Mitral E to A Ratio 0.6 MV PHT Velocity 93.9 cm/s MV Deceleration [place] 309.0 cm/s MV Pressure Half Time 91.2 ms MV Area PHT 2.4 cm MV Deceleration Time 277.0 ms TR Peak Velocity 240.0 cm/s TR Peak Gradient 23.0 mmHg Right Atrial Pressure 5.0 mmHg Pulmonary Artery Systolic Pressu 28.0 mmHg Right Ventricular Systolic Press 28.0 mmHg PV Peak Velocity 127.0 cm/s PV Peak Gradient 6.5 mmHg PV Mean Velocity 84.4 cm/s PV Mean Gradient 3.0 mmHg PV Velocity Time Integral 25.4 cm LV E' Lateral Velocity 7.7 cm/s Mitral E to LV E' Lateral Ratio 10.5 LV E' Septal Velocity 4.3 cm/s Mitral E to LV E' Septal Ratio 18.8
== END 2016-09-29 19:50 ==
LOC: ERH 21:39 → ERHI 09-29 00:56 → ENRESERV 09-29 01:37 → 1NO 09-29 02:13
PROVIDERS: Internal Medicine; Pediatrics; ADMIT Internal Medicine
DX: M54.12 Radiculopathy, cervical region (principal); R20.2 Paresthesia of skin; R53.1 Weakness; I10 Essential (primary) hypertension; K21.9 Gastro-esophageal reflux disease without esophagitis
CPT/HCPCS: 6020; 72040; 93005; 93010; 93306; 96372; 97165-GO; G0378; J1650; J3490

== ENCOUNTER 2017-09-03 15:53 | Emergency (ER) | payer OTHER ==
[~2017-09-03] VITALS: Ht 167.6 cm; Wt 97.5 kg
[~2017-09-03 15:53] MED LIST changes: +ASPIRIN81 M4 PO; +ATORVASTATIN CA20 M1 PO; +ATORVASTATIN CA40 M1 PO; +FERROUS SULFAT325 M3 PO; +HYDRALAZINE HCL25 M1 PO; +HYDROCHLOROTH12.5 M3 PO; +NIFEDIPINE ER60 M1 PO
[2017-09-03] MEDS ORDERED: ROBAXIN500 M1 PO (19:44)
[2017-09-03] MEDS ORDERED: NAPROSYN500 M1 PO (19:44)
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
[2017-09-03 19:47] VITALS: BP 159/105
== END 2017-09-03 19:53 ==
LOC: ERH 15:53
DX: T14.8XXA Other injury of unspecified body region, initial encounter (principal); V89.2XXA Person injured in unspecified motor-vehicle accident, traffic, initial encounter